=== PATIENT | female | born 1945 | race Caucasian/White ===

== ENCOUNTER → 2017-09-27 | Outpatient (CLI) | payer OTHER, MEDICARE ==
[~2017-09-27] MED LIST: CALCTAB65 PO; NAPR220T PO; [UNRECOGNIZED DRUG - OTHER] PO
== END | disposition home or self-care (01) ==
LOC: C.LABMFLN 10:24
PROVIDERS: ATTEND Family Medicine
DX: E04.9 Nontoxic goiter, unspecified (principal)

== ENCOUNTER 2020-01-22 10:11 | Observation (INO) ==
--- NOTE | 2019-12-27 14:12 | PAT Medication Instructions ---
Medication Instructions Date of Service December 27, 2019 Home Medications Medication Instructions Recorded Wheeled Walker #1 ea 12/11/19 Wheeled Walker #1 ea 12/11/19 celecoxib 200 mg PO QAM ASK your surgeon for instructions celecoxib 200 mg PO QAM Other Notes If you have any questions please call us at [phone] or [phone] or [phone] or [phone]
--- NOTE | 2019-12-29 14:52 | PAT Medication Instructions ---
Medication Instructions Date of Service December 29, 2019 Home Medications Medication Instructions Recorded Wheeled Walker #1 ea 12/11/19 Wheeled Walker #1 ea 12/11/19 celecoxib 200 mg PO QAM ASK your surgeon for instructions celecoxib 200 mg PO QAM Other Notes NOTHING TO EAT OR DRINK AFTER MIDNIGHT THE NIGHT BEFORE SURGERY. If you have any questions please call us at [phone] or [phone] or [phone] or [phone]
--- NOTE | 2019-12-30 13:03 | Anesthesiology Consultation ---
Date of Service December 30, 2019 Assessment & Plan (1) Encounter for pre-operative examination: Chart Review Chart Review: Acceptable Risk for Surgery (pending preop Covid testing) and Patient seen in Pre Admission Testing Pt does wear a pessary- gets removed and cleaned q three months by DEMOLITION EXPERT. Instructed patient to inform surgery to ensure no issues. Per [facility] appt 12/30/19, pt resides in [facility]. Denies travel. Wears mask in public and social distances. Educated patient to follow up with surgeon's office regarding Covid testing. Educated on importance of self quarantining, social distancing and wearing mask in public both for herself and household contacts. Teaching & Discussion Pre-Anesthesia Teaching/Discussion Notes: Instructed NPO after midnight before surgery,except medications with 15 cc of water. Medication instructions provided according to the PAT guidelines. History Surgery Operation Date: 01/22/20 08:50 Proposed Procedures p Left Total Knee Arthroplasty - Arnav Toro MD Height/Weight Height: 5 ft 3 in Weight: 81.7 kg Allergies Allergy/AdvReac Type Severity Reaction Status Date / Time cortisone AdvReac Anxiety Verified 12/24/19 13:51 ezetimibe [From Zetia] AdvReac Anxiety Verified 12/24/19 13:51 Medications Home Medications Medication Instructions Recorded Confirmed Last Taken Wheeled Walker #1 ea 12/11/19 12/24/19 Unknown Wheeled Walker #1 ea 12/11/19 12/24/19 Unknown celecoxib 200 mg PO QAM 12/24/19 12/24/19 Unknown Past Medical History Medical History Arthritis of left knee Cystocele with incomplete uterovaginal prolapse Pt has pessary in place GERD (gastroesophageal reflux disease) Well controlled and stable with med Osteoarthritis Personal history of malignant neoplasm of breast left breast> initially dx'ed 2001- s/p lumpectomy and XRT 2009 - s/p bilateral mastectomy and chemo No ports Sciatica Stress incontinence Exercise / Class Metabolic Activity II 4-5 Yardwork/Stairs/Walk up hill (one flight of stairs- no chest pain or SOB ) Past Family History Family History Daughter Cystic fibrosis Mother Diabetes Heart disease Brother Lung cancer Skin cancer Colorectal cancer Father Prostate cancer Sister Uterine cancer Other Cancer Past Surgical History Surgical History H/O varicose vein ligation History of colonoscopy History of tooth extraction History of tubal ligation S/P bunionectomy right foot S/P cataract surgery bilat S/P lumpectomy of breast left S/P mastectomy bilat Past Anesthesia History No Hx of Anesthesia Complications and No Family Hx of Anesthesia Complications History of PONV No Hx of PONV and No Hx of Motion Sickness Social History Smoking Status: Never smoker Do You Dip or Chew Tobacco: No Hx Alcohol Use: No Hx Substance Use: No substance use type: does not use Review of Systems Patient denies chest pain, shortness of breath, dyspnea on exertion, cough, wheezing, palpitations. No hx of seizures, stroke, CT, apnea/snoring. No hx of blood clots or blood transfusions Physical Exam Vital Signs VITALS BP 153/94 (BP usually well controlled) P 81 TEMP 97.9 SP02 95% RESP 16 Constitutional no acute distress ENMT Mouth: no TMJ clicking Thyromental Distance: < 3.5 Finger Breadths (3.0) Mallampati Class: II Full upper dentures Missing bottom molars Neck + thick neck and + limited neck extension (mild ) Respiratory normal respiratory effort; no respiratory distress Auscultation: lungs clear to auscultation bilaterally; no wheezes Cardiovascular Rate/Rhythm: regular rate and regular rhythm Heart Sounds: no murmur Vessels: no carotid bruit Musculoskeletal Spine: no pain with cervical ROM Neurologic moves all extremities Psychiatric Orientation: alert Testing Laboratory Results 12/30/19 13:22 12/30/19 13:22 PT 10.6 Seconds (9.0-12.0) 12/30/19 13:22 INR 1.0 (0.9-1.1) 12/30/19 13:22 APTT 26.5 Seconds (21.0-31.0) 12/30/19 13:22 Blood Type O Positive 12/30/19 13:22 Antibody Screen NEGATIVE 12/30/19 13:22 Electrocardiogram Date: 12/30/19 Findings: + NSR @ (72) Chest X-Ray Date: 12/30/19 Findings: + NAD
--- NOTE | 2019-12-30 13:49 | XRay Report ---
TWO VIEW CHEST CLINICAL HISTORY: Preoperative examination. FINDINGS: PA and lateral chest radiographs are obtained. No prior studies are available for compariso n at the time of dictation. The cardiomediastinal silhouette is unremarkable. The lungs and pleural spaces are clear. There is no pneumothorax. The skeletal structures are osteopenic. The bony thorax appears intact. Mild degenerative change is noted in the thoracic spine. IMPRESSION: No active disease in the chest. ACT 112: Negative or not required by law. Electronically signed by: Patricio Amato M.D. 12/30/2019 1:48 PM
--- NOTE | 2019-12-30 14:53 | Electrocardiogram Report ---
Test Reason : Blood Pressure : / mmHG Vent. Rate : 072 BPM Atrial Rate : 072 BPM P-R Int : 164 ms QRS Dur : 082 ms QT Int : 402 ms P-R-T Axes : 070 012 073 degrees QTc Int : 440 ms Normal sinus rhythm Normal ECG No previous ECGs available Confirmed by Julio Wooten ([id number]) on 12/30/2019 2:53:41 PM Referred By: Arnav Toro Confirmed By:Julio Wooten
[2019-12-30 16:36] LABS: Basophils # (auto) 0.03 K/uL (0-0.2); Basophils % (auto) 0.7 %; Eosinophils # (auto) 0.24 K/uL (0-0.5); Eosinophils % (auto) 5.2 %; Hematocrit (blood only) 41.9 % (37-47); Lymphocytes # (auto) 1.17 K/uL (1.2-3.4); Lymphocytes % (auto) 25.5 %; Mean Corpuscular Hemoglobin 30.3 pg (25-34); Mean Corpuscular Hgb Conc 33.4 g/dL (32-36); Mean Corpuscular Volume 90.7 fL (80-100); Mean Platelet Volume 12.3 fL (7.4-10.4); Monocytes # (auto) 0.39 K/uL (0.11-0.59); Monocytes % (auto) 8.5 %; Neutrophils # (auto) 2.76 K/uL (1.4-6.5); Neutrophils % (auto) 60.1 %; Platelet Count 137 K/uL (130-400); RDW Coefficient of Variation 13.3 % (11.5-14.5); RDW Standard Deviation 43.7 fL (36.4-46.3); Red Blood Count 4.62 M/uL (4.2-5.4); White Blood Count 4.59 K/uL (4.8-10.8)
[2019-12-30 16:47] LABS: Calcium 9.3 mg/dl (8.5-10.1); Creatinine Clr Calc Pharmacy 58.1 ml/min; Est GFR (African American) 77.1; Est GFR (Non-African American) 66.6; Potassium 3.7 mmol/L (3.5-5.1)
[2019-12-30 16:48] LABS: Partial Thromboplastin Ratio 0.9; Partial Thromboplastin Time 26.5 Seconds (21.0-31.0); Prothrombin Time 10.6 Seconds (9.0-12.0)
[~2020-01-22 10:11] MED LIST changes: +ACETAMINOPHEN 500 MG TAB PO SCH; +BUPIVACAINE 0.5 % 5 MG/1 ML PF 10ML VIAL ONE; +BUPIVACAINE LIPOSOME/PF 266 MG, BUPIVACAINE/EPINEPHRINE 50 ML, SODIUM CHLORIDE 0.9% 30 ... INFIL SCH; -CALCTAB65 PO; +CEFAZOLIN 2000MG 2,000 MG/15 ML SYR IV SCH; +FAMOTIDINE 20 MG TAB PO SCH; +GABAPENTIN 300 MG CAP PO SCH; +LR 500ML BOLUS, THEN 15ML/HR IV SCH; +LR 60ML/HR IV SCH; +METOCLOPRAMIDE HCL 10 MG TABLET PO SCH; -NAPR220T PO; +ROPIVACAINE 0.5% 5 MG/ML 30 ML VIAL ONE; +TRANEXAMIC ACID 1,000 MG **IV Intra-op IV SCH; -[UNRECOGNIZED DRUG - OTHER] PO
--- NOTE | 2020-01-22 10:29 | History & Physical Bridge Note ---
Date of Service January 22, 2020 History & Physical Bridge Note I have examined the patient, reviewed the History & Physical and in the interval since the performance of the History & Physical I have noted the following changes of clinical significance: no changes noted
[2020-01-22] MEDS ORDERED: ONDANSETRON INJ 2 MG/ML 2 ML VIAL IV PRN (11:06)
[2020-01-22] MEDS ORDERED: fentaNYL citrate 100 MCG/2 ML VIAL IV PRN (11:06)
[2020-01-22] MEDS ORDERED: ATROPINE SULFATE 0.1 MG/ML 10ML SYR IV PRN (11:06)
[2020-01-22] MEDS ORDERED: ePHEDrine sulfate 50 MG/ML AMP IV PRN (11:06)
[2020-01-22] MEDS ORDERED: MIDAZOLAM HCL 1 MG/ML 2ML VIAL ONE ×2 (11:46→13:01)
[2020-01-22] MEDS ORDERED: LIDOCAINE HCL 2% 2 ML VIAL/AMP(20MG/ML) INFIL ONE (11:48)
[2020-01-22] MEDS ORDERED: PROPOFOL IV EMULSION 10 MG/ML 20 ML VIAL IV ONE ×2 (11:48→13:48)
[2020-01-22] MEDS ORDERED: SODIUM CHLORIDE 0.9% PF 50 ML VIAL ONE (12:37)
[2020-01-22] MEDS ORDERED: BACITRACIN INJ 50,000 UNIT VIAL ONE (12:37)
[2020-01-22] MEDS ORDERED: BUPIVACAINE LIPOSOME 1.3% 266 MG/20 ML VIAL ONE (12:37)
[2020-01-22] MEDS ORDERED: BUPIVACAINE/EPINEPHRINE 0.25% 1:200,000 30 ML VIAL ONE (12:37)
[2020-01-22] MEDS ORDERED: PHENYLEPHRINE 100MCG/ML 5ML SYR ONE (13:48)
--- NOTE | 2020-01-22 14:33 | Post Operative Brief Note ---
PG Immediate Post Op with CF Date of Surgery January 22, 2020 Pre & Post Diagnosis Operation Date: 01/22/20 12:30 Pre-Op Diagnosis: Left Knee Degenerative Joint Disease, Knee Pain Post-Op Diagnosis: Left Knee Degenerative Joint Disease, Knee Pain I identified the patient and participated in the time-out.: Yes Procedure Operation Date: 01/22/20 12:30 Actual Procedures p Left Total Knee Replacement(Left) - Arnav Toro MD Surgeon Arnav Toro MD [employer] Supervisor Ag, PAC\ Estimated Blood Loss 50 Findings Consistent with Post-Op Diagnosis Fluids 1200 cc Specimens Specimen Description: Permanent: A. Left Knee Bone and Tissue Drains Hwang Catheter Anesthesia Type Spinal MAC Complications none Disposition Accompanied Patient To Recovery: No Disposition: Recovery Room
--- NOTE | 2020-01-22 14:44 | Operative Report ---
Post Operative Report Pre & Post Diagnosis Operation Date: 01/22/20 12:30 Pre-Op Diagnosis: Left Knee Degenerative Joint Disease, Knee Pain Post-Op Diagnosis: Left Knee Degenerative Joint Disease, Knee Pain I identified the patient and participated in the time-out.: Yes Procedure Operation Date: 01/22/20 12:30 Actual Procedures p Left Total Knee Replacement(Left) - Arnav Toro MD Surgeon Arnav Toro MD Interactive Media Designer Ag, PAC Estimated Blood Loss 50 Findings Consistent with Post-Op Diagnosis Operative findings revealed advanced left knee DJD. She had extensive grade 4 [id number] disease and eburnation of the medial compartment. She had less severe but significant grade 4 changes in her patellofemoral compartment as well as the lateral compartment. Moderate-sized joint effusion. She had a varus deformity to her knee with osteophytes in all 3 compartments. Fluids 1200 cc. Specimens Left knee sent for pathology. Drains None. Anesthesia Type Spinal MAC Complications none Disposition Accompanied Patient To Recovery: No Disposition: Recovery Room Indications Patient is a 74-year-old very active female is had a long history of bilateral knee pain discomfort left side bit worse than right. She is been through extensive conservative treatment over the years which became less successful. X-rays show advanced DJD. She elected to total knee arthroplasty. Description of Procedure Operative implants consist of: 1. Biomet Vanguard size 65 left posterior by femoral component. 2. Biomet size 67 tibial tray. 3. 12 mm posterior stabilized polyethylene insert. 4. 28 x 8 all poly-patella. Patient was taken to the operating room identified and placed on the operating table supine position protectors were properly padded. IV antibiotics arrived by anesthesia team. A spinal anesthetic and abductor canal block had provided in the holding area. Hwang catheter was placed in sterile fashion the left thigh tip was then placed in the left lower extremities and prepped draped in usual sterile fashion. The left leg was elevated and exsanguinated with use of an Esmarch interspace at 300 mmHg. An anterior posterior left knee was then performed to longitudinal incision centered over the patella. Sharp dissection got through subcutaneous this down the extensor mechanism. A medial parapatellar arthrotomy incision was made. Some subperiosteal dissection was carried out medially. The fat pad was resected from each patella tendon. Lateral patellofemoral ligament was released. The patella was subluxated laterally and the knee was flexed. The osteophytes were taken off distal femur. The ACL and PCL were then released from distal femur the tibia subluxate anteriorly. The external tibial alignment jig was then placed in the interface the tibia and adjusted 14 mm medially. Proximal tibial cut was made to move out a millimeter or 2 of bone from the most deficient aspect medial tibial plateau. Some large osteophytes were taken off medial and posterior medially. Tibia was sized to a size 67. Attention drawn the femur. The distal femur then with a sharp drop with intramedullary canal was suction. A left 5 degree valgus cutting guide was placed. Distal femoral cutting block was pinned in place. This femoral cut was made to take an additional 3 mm of bone off distal femur. The femur was then sized to a size 65. We did downsize a 7. The AP cutting block was then pinned parallel to the epicondylar axis which was 6 degrees of external rotation. The anterior cut, anterior chamfer, posterior cut, posterior chamfer cuts were made. Box cutting guide was placed in just slight lateral and the box cut was made. The knee was flexed. The remnants of the medial and lateral menisci were excised. The osteophytes were taken off the posterior aspect of the femur. A trial femoral component was placed for the tibial tray was pinned in maximum external rotation and the drill and stem punch were used to create defect in proximal tip for the tibial tray. Knee was then trialed and the 12 mm insert fit most appropriately. Attention drawn the patella. Patella was cleaned of all soft tissues. The patella thickness measured 23 mm in thickness was cut down to 14. Was sized to a size 28 patella. Locals were drilled for the 28 patella. Lateral osteophyte was removed. Patella button was placed. Knee was taken through range of motion patella tracked nicely with no thumbs test. Attention drawn to place the permanent components. All trial components removed. Bone plug was placed in the disc femur limit blood loss put a double batch Pal[place]os G cement was mixed. A Biomet Vanguard size 65 left posterior by femoral component, 67 tibial tray, 12 mm posterior box polyethylene insert, and a 28 x 8 all poly-patella then cement in place. Knees brought out in full extension total cement hardened. Final cement check was then performed. The pericapsular tissues were injected with total 100 cc of combination of 20 cc of Exparel, 30 cc normal saline, 50 cc of quarter percent Marcaine with epinephrine. Patient did receive 1 g tranexamic acid. The tourniquet was then let down for turn time 55 minutes but hemostasis assured use electrocautery. The extensor mechanism then closed with combination 1 PDS suture #1 Vicryl suture in [id number] fashion. The extensor mechanism checked found to be intact the subcutaneous tissue then closed 2 Dexon suture in a buried interrupted fashion the skin was closed skin cricket. Leg was then cleaned dried and sterile dressed composed Xeroform, 4 x 4's, sterile cast padding, Antwon bandage were applied. Patient then transferred to the recovery room in stable condition. Patient tolerated the procedure well and there were no complications. I attest to the content of the Intraoperative Record and any orders documented therein. Any exceptions are noted below.
--- NOTE | 2020-01-22 14:56 | XRay Report ---
XR knee LT 1 or 2V routine CLINICAL HISTORY: Surgical Post Op COMPARISON: 03/15/2019 DISCUSSION: There are postsurgical changes of a total left knee arthroplasty and patellar resurfacing . The femoral and tibial components appear well seated. There are overlying skin cricket. There is ai r within the soft tissues consistent with recent surgery IMPRESSION: Postsurgical changes of a total left knee arthroplasty. ACT 112: Negative or not required by law. Electronically signed by: Luther Cortes M.D. 01/22/2020 2:55 PM
--- NOTE | 2020-01-22 15:37 | Anesthesiology Progress Note ---
Date of Service January 22, 2020 Anesthesia Post Procedure Vital Signs Vital Signs: Temp Pulse Pulse Resp BP Pulse Ox 01/22/20 15:30 84 14 133/75 94 01/22/20 15:20 87 15 139/77 98 01/22/20 15:10 87 16 131/80 96 01/22/20 15:00 88 18 123/72 98 01/22/20 14:50 89 16 125/67 99 01/22/20 14:40 94 H 16 118/65 97 01/22/20 14:33 36.7 C 98 H 18 102/63 98 01/22/20 11:20 80 18 157/103 H 96 01/22/20 10:41 36.6 C 83 18 125/87 97 Transfer of Care Handoff Completed per policy Notes Mental Status: alert / awake / arousable and participated in evaluation Patient Amnestic to Procedure: Yes Nausea / Vomiting: adequately controlled Pain: adequately controlled Airway Patency, RR, SpO2: stable & adequate BP & HR: stable & adequate Hydration State: stable & adequate Neuraxial Anesthesia: was administered and sensory block is resolving Anesthetic Complications: no major complications apparent and Pt Satisfied with anesthetic care
[2020-01-22] MEDS ORDERED: ALUMINUM/MAGNESIUM SUSP 30 ML UDC PO PRN (16:26)
[2020-01-22] MEDS ORDERED: NALOXONE HCL 0.4 MG/1 ML VIAL/CARP IV PRN (16:26)
[2020-01-22] MEDS ORDERED: MAGNESIUM HYDROXIDE SUSP 30 ML UDC PO PRN (16:26)
[2020-01-22] MEDS ORDERED: HYDROmorphone INJ 0.5 MG/0.5 ML SYR IV PRN (16:26)
[2020-01-22] MEDS ORDERED: METOCLOPRAMIDE HCL INJ 5 MG/ML 2 ML VIAL IV PRN (16:26)
[2020-01-22] MEDS ORDERED: bisacodyL 10 MG SUPP PR PRN (16:26)
[2020-01-22] MEDS: SODIUM CHLORIDE 0.9% 1000ML 1,000 ML IV SCH (16:52)
[2020-01-22] MEDS: ASCORBIC ACID 500 MG TAB PO SCH (17:50)
[2020-01-22] MEDS: FERROUS GLUCONATE 324 MG TAB PO SCH (17:50)
[2020-01-22] MEDS: KETOROLAC TROMETHAMINE 15 MG/ML VIAL IV SCH ×2 (17:51→23:24)
[2020-01-22] MEDS: ASPIRIN 81 MG ECTAB PO SCH (20:13)
[2020-01-22] MEDS: TRAMADOL HCL 50 MG TABLET PO PRN (20:13)
[2020-01-22] MEDS: SENNA 8.6 MG TAB PO SCH (20:14)
[2020-01-22] MEDS: DOCUSATE SODIUM 100 MG CAP PO SCH (20:14)
[2020-01-22] MEDS ORDERED: TRANEXAMIC ACID / 0.7% NACL 1,000 MG/100 ML BAG IV SCH (20:36)
[2020-01-22] MEDS: ACETAMINOPHEN 500 MG TAB PO SCH (22:16)
[2020-01-22] MEDS: CEFAZOLIN 2000MG 2,000 MG/15 ML SYR IV SCH (22:17)
[2020-01-23] MEDS: SODIUM CHLORIDE 0.9% 1000ML 1,000 ML IV SCH (02:54)
[2020-01-23] MEDS: ACETAMINOPHEN 500 MG TAB PO SCH ×3 (05:56→22:17)
[2020-01-23] MEDS: CEFAZOLIN 2000MG 2,000 MG/15 ML SYR IV SCH (05:57)
[2020-01-23] MEDS: ONDANSETRON INJ 2 MG/ML 2 ML VIAL IV PRN ×2 (06:11→19:18)
[2020-01-23] MEDS: KETOROLAC TROMETHAMINE 15 MG/ML VIAL IV SCH ×3 (06:20→17:20)
[2020-01-23 06:23] LABS: Hematocrit (blood only) 34.9 % (37-47); Hemoglobin 11.6 g/dL (12.0-16.0); Mean Corpuscular Hemoglobin 29.9 pg (25-34); Mean Corpuscular Hgb Conc 33.2 g/dL (32-36); Mean Corpuscular Volume 89.9 fL (80-100); Mean Platelet Volume 12.2 fL (7.4-10.4); Platelet Count 102 K/uL (130-400); RDW Coefficient of Variation 13.2 % (11.5-14.5); RDW Standard Deviation 43.3 fL (36.4-46.3); Red Blood Count 3.88 M/uL (4.2-5.4); White Blood Count 7.35 K/uL (4.8-10.8)
[2020-01-23 06:24] LABS: Platelet Estimate Decreased (Normal)
[2020-01-23 06:27] LABS: BUN Creatinine Ratio 18.5 (10-20); Calcium 7.6 mg/dl (8.5-10.1); Creatinine Clr Calc Pharmacy 58.4 ml/min; Est GFR (African American) 78.2; Est GFR (Non-African American) 67.5
[2020-01-23] MEDS: FERROUS GLUCONATE 324 MG TAB PO SCH ×2 (08:53→17:20)
[2020-01-23] MEDS: DOCUSATE SODIUM 100 MG CAP PO SCH ×2 (08:53→20:35)
[2020-01-23] MEDS: ASPIRIN 81 MG ECTAB PO SCH ×2 (08:54→20:36)
[2020-01-23] MEDS: MULTIVITAMIN TAB PO SCH (08:54)
[2020-01-23] MEDS: ASCORBIC ACID 500 MG TAB PO SCH ×2 (08:54→17:21)
--- NOTE | 2020-01-23 08:59 | Progress Notes ---
DATE: 01/23/2020 SUBJECTIVE: A 74-year-old female postop day 1 from left knee replacement. She is doing pretty well. Had a pretty good night. Pain is controlled. No chest pain or shortness of breath. Not feeling dizzy or lightheaded. OBJECTIVE: VITAL SIGNS: Temperature 36.6. Vital signs stable. GENERAL: Physical examination shows a pleasant elderly female. She is sitting up in bed, looks quite comfortable. LUNGS: Clear to auscultation. HEART: Regular rate and rhythm. ABDOMEN: Soft, nontender, nondistended. EXTREMITIES: Grossly neurovascularly intact except as follows. Examination of the left leg reveals it to be well aligned. Dressing is clean, dry and intact. She can dorsiflex and plantarflex her foot appropriately. She is neurologically intact. LABORATORY DATA: Hemoglobin 11.6. Hematocrit 34.9. Electrolytes are stable. ASSESSMENT: A 74-year-old female postop day 1 from left knee replacement, doing well. Pain is controlled. She is neurologically intact. PLAN: 1. DVT prophylaxis include thigh-high TEDs, SCDs and aspirin twice a day. 2. PT/OT, weightbear as tolerated. Left total knee protocol. 3. Pain control, doing well with current pain regimen. 4. Disposition. She is hoping to be discharged to home with some home health once adequately recovered and medically stable. We will see how therapy goes today.
[2020-01-23] MEDS: TRAMADOL HCL 50 MG TABLET PO PRN (11:53)
[2020-01-23] MEDS: SENNA 8.6 MG TAB PO SCH (20:37)
[2020-01-24] MEDS: KETOROLAC TROMETHAMINE 15 MG/ML VIAL IV SCH ×2 (00:07→06:11)
[2020-01-24] MEDS: ACETAMINOPHEN 500 MG TAB PO SCH (06:11)
[2020-01-24] MEDS: ASPIRIN 81 MG ECTAB PO SCH (08:19)
[2020-01-24] MEDS: MULTIVITAMIN TAB PO SCH (08:19)
[2020-01-24] MEDS: DOCUSATE SODIUM 100 MG CAP PO SCH (08:19)
[2020-01-24] MEDS: FERROUS GLUCONATE 324 MG TAB PO SCH (08:20)
[2020-01-24] MEDS: ASCORBIC ACID 500 MG TAB PO SCH (08:20)
--- NOTE | 2020-01-24 09:17 | Progress Notes ---
DATE: 01/24/2020 SUBJECTIVE: A 74-year-old white female postop day 2 from a left knee replacement. She is doing pretty well. Pain is controlled. Some intermittent nausea. No chest pain or shortness of breath. Not feeling dizzy or lightheaded. OBJECTIVE: VITAL SIGNS: Temperature 36.7. Vital signs stable. GENERAL: Physical examination shows a pleasant, elderly female. She is sitting up in bed, looks pretty comfortable this morning. EXTREMITIES: Examination of the left leg reveals the leg to be well aligned. Dressings is in place. Just a little bit of bloody drainage anteriorly. Calf is soft and supple. She is neurologically intact. ASSESSMENT: A 74-year-old white female postop day 2 from a left knee replacement, doing pretty well. A little bit of nausea likely related to the medicines. PLAN: 1. DVT prophylaxis include thigh-high TEDs, SCDs, and aspirin twice a day. 2. PT/OT, weightbear as tolerated. Left total knee protocol. 3. Pain control, doing well with current pain regimen. 4. Disposition: Plan to discharge to home with some home health likely later today.
--- NOTE | 2020-01-27 16:11 | Discharge Summary ---
Date of Service January 27, 2020 Admission HPI Per Admitting Provider Documented in the H & P Admission Exam (Per Admitting) Constitutional Documented in the H & P Discharge Data Consultations 01/22/20 16:26 Consult Case Management - Discharge Planning Routine Procedures Performed Operation Date: 01/22/20 12:30 Actual Procedures p Left Total Knee Replacement(Left) - Arnav Toro MD Hospital Course (1) Status post total left knee replacement: This patient is a 74 year old female admitted on 01/22/20and underwent left total knee replacement. She tolerated the procedure well and there were no complications. Transferred to the PACU post op and later to the orthopedic floor for further care. She was given ancef for antibiotic prophylaxis. She was also given ISIDRA stockings, SCDs, and aspirin for DVT prophylaxis. Hemoglobin, hematocrit, and vital signs were monitored during their hospital stay and remained stable. Did not require any blood transfusions. There were no complications during their hospital stay. By post op day #2 the patient was tolerating a regular diet, pain was reasonably controlled with oral pain medicine, and she was participating in physical therapy. On post op day #2 the patient was discharged home and set up with home health care. She was given printed discharge instructions including prescriptions for extra strength tylenol, aspirin, and tramadol. Continue physical therapy, weight bearing as tolerated. Continue ISIDRA stockings. Follow up approximately 2 weeks post op or sooner if there are problems or concerns. Coding Level of Care Code None Diagnoses Status post total left knee replacement Z96.652
== END 2020-01-24 11:00 | disposition home health service (06) ==
LOC: 3E 10:11 → ASU 10:11

== ENCOUNTER 2023-11-22 10:46 | Observation (INO) ==
--- NOTE | 2023-10-28 10:49 | PAT Medication Instructions ---
Medication Instructions Date of Service October 28, 2023 Home Medications naproxen sodium 220 mg tablet (Aleve) 420 mg PO BID PRN Pain ASK your surgeon for instructions naproxen sodium 220 mg tablet (Aleve) 420 mg PO BID PRN Pain OTHERWISE NOTHING TO EAT OR DRINK AFTER MIDNIGHT Other Notes If you have any questions please call us at [phone] or [phone] or [phone] or [phone]
--- NOTE | 2023-11-07 10:11 | Anesthesiology Consultation ---
Date of Service November 07, 2023 Assessment & Plan (1) Encounter for pre-operative examination: - Infectious disease screening: Per assessment on 11/07/23: No known infectious disease contacts or current infectious disease symptoms. - Outpatient joint assessment: Pt currently scheduled for inpatient pathway. If surgeon requests review for outpatient joint pathway, patient is an acceptable candidate for outpatient joint program from anesthesia standpoint pending surgeon's office assessment that patient is motivated, has good support and completes [facility] Program preop requirements. - LUE limb restriction - S/P Left TKA (01/22/2020): SAB at L4-5, x1 attempt + regional at [facility] Chart Review Chart Review: Acceptable Risk for Surgery and Patient seen in Pre Admission Testing Teaching & Discussion Pre-Anesthesia Teaching/Discussion Notes: Instructed NPO after midnight before surgery,except medications with 15 cc of water. Medication instructions provided according to the PAT guidelines. p History Surgery Operation Date: 11/22/23 08:50 Proposed Procedures p Right Total Knee Arthroplasty - Arnav Toro MD Height/Weight Height: 5 ft 3 in Weight: 81.1 kg Allergies Allergy/AdvReac Type Severity Reaction Status Date / Time cortisone AdvReac Mild Anxiety Verified 10/24/23 07:26 ezetimibe [From Zetia] AdvReac Mild Anxiety Verified 10/24/23 07:26 Medications Home Medications Medication Instructions Recorded Confirmed Last Taken naproxen sodium 220 mg tablet 420 mg PO BID PRN Pain 10/24/23 10/24/23 Unknown (Aleve) Past Medical History Medical History Cystocele with incomplete uterovaginal prolapse + Pessary History of COVID-19 08/12/23 ([place]): not hospitalized, symptoms resolved Hx of gastroesophageal reflux (GERD) Hyperlipidemia Limb alert care status Left arm Osteoarthritis Personal history of malignant neoplasm of breast Left breast, Dx 2001, s/p lumpectomy and XRT 2009 - s/p bilateral mastectomy and chemo PMR (polymyalgia rheumatica) Right knee DJD Right lumbar radiculopathy Sciatica Stress incontinence Trochanteric bursitis of right hip Exercise / Class Metabolic Activity II 4-5 Yardwork/Stairs/Walk up hill (one FS: No CP, no SOB) Past Family History Family History Daughter Cystic fibrosis Breast cancer Mother Diabetes Heart disease Myocardial infarction Ovarian cancer Brother Lung cancer Skin cancer Colorectal cancer Myocardial infarction Father Prostate cancer Sister Uterine cancer Myocardial infarction Other Cancer Past Surgical History Surgical History H/O varicose vein ligation History of arthroplasty of left knee Left TKA (01/22/2020): SAB at L4-5, x1 attempt + regional at [facility] History of colonoscopy History of tooth extraction History of tubal ligation Hx of bilateral cataract extraction Hx of bilateral mastectomy S/P bunionectomy right foot S/P lumpectomy of breast left Past Anesthesia History No Hx of Anesthesia Complications and No Family Hx of Anesthesia Complications History of PONV No Hx of PONV and Hx of Motion Sickness (Occasional) Social History Smoking Status: Never smoker Do You Dip or Chew Tobacco: No Hx Alcohol Use: No Hx Substance Use: No substance use type: does not use Review of Systems Patient denies chest pain, shortness of breath, dyspnea on exertion, fever, chills, cough, wheezing, palpitations. Physical Exam Vital Signs BP 153/86 P 85 TEMP 98.1 SP02 95%RA RESP 18 Physical Full cervical extension range of motion. Full TMJ range of motion. TMD 3 finger breaths Mallampati Score 1 Dentition: upper full plate, several missing lower teeth Lungs: clear throughout to auscultation Cardiac: regular rate and rhythm, no murmurs noted Spine: normal Carotid arteries: negative bruit Extremities: no LE edema Lab Results Anesthesia Preop Results Results Anesthesia Widget: WBC 4.75 K/ul (4.8-10.8) L 11/07/23 Hgb 14.4 g/dl (12.0-16.0) 11/07/23 Hct 43.9 % (37.0-47.0) 11/07/23 Plt 135 K/uL (130-400) 11/07/23 Na 138 mmol/L (136-145) 11/07/23 K 4.3 mmol/L (3.5-5.1) 11/07/23 Cl 103 mmol/L (98-107) 11/07/23 CO2 28 mmol/L (21-32) 11/07/23 BUN 16 mg/dl (6-23) 11/07/23 Creat 0.83 mg/dl (0.6-1.2) 11/07/23 Glucose Level 108 mg/dl (70-99(Fasting)) H 11/07/23 PT 10.8 Seconds (9.0-12.0) 11/07/23 PTT 26 Seconds (21-31) 11/07/23 INR 1.0 (0.9-1.1) 11/07/23 Blood Type O Positive 11/07/23 Antibody Screen NEGATIVE 11/07/23 Testing Electrocardiogram Date: 11/07/23 NSR at 75bpm. Low voltage QRS. Early transition. Leftward axis. No significant change compared to 12/30/2019 per disc jockey comparison. Chest X-Ray Date: 11/07/23 FINDINGS: PA and lateral chest radiographs are compared to study dated 12/30/2019. The cardiomediastinal silhouette is unremarkable. The lungs and pleural spaces are clear. There is no pneumothorax. The skeletal structures are osteopenic. The bony thorax appears intact. Arthritic change is noted in the left shoulder. IMPRESSION: No active disease in the chest.
--- NOTE | 2023-11-16 09:22 | History & Physical Report ---
Date of Service November 16, 2023 Assessment & Plan (1) Right knee DJD: 78-year-old female little over 3 years out from a left knee replacement with advanced right knee DJD. She is failed conservative measures. She like to proceed with right knee replacement. Plan: Plan to take her to the operating room and do a right total knee replacement. The risks Mente this procedure explained the patient include but not limited to DVT, PE, , infection, neurological injury, vascular injury, persistent pain and incomplete relief of symptoms. The patient understands and desires to proceed. Informed consent was obtained. She is planning on using the [email or web address] health program. Her granddaughter is going to come and stay with her postoperatively for a while. Will plan on DVT prophylaxis including thigh-high teds, SCDs, aspirin twice a day. (2) Status post total left knee replacement: (3) PMR (polymyalgia rheumatica): (4) Hyperlipidemia: History of Present Illness Chief Complaint: Persistent right knee pain and discomfort. Primary Care Provider: Violeta Rees DO . Patient is a 78-year-old female little over 3 years out from a left knee replacement who presents for surgical treatment of her right knee. She got a long history of knee problems. She is a bit over 3 years from the left knee replacement doing well. She continues to be bothered by right knee pain and discomfort. She been through extensive conservative treatment which has become less successful over time. Describes global pain. The more she is up and onto more it hurts and she limps more as the day goes on. She like to proceed with that a right knee replacement. Allergies Allergy/AdvReac Type Severity Reaction Status Date / Time cortisone AdvReac Mild Anxiety Verified 11/15/23 09:21 ezetimibe [From Zetia] AdvReac Mild Anxiety Verified 11/15/23 09:21 Home Medications Medication Instructions Recorded Confirmed Type naproxen sodium 220 mg tablet 420 mg PO BID PRN Pain 10/24/23 11/15/23 History (Aleve) Wheeled Walker #1 ea 11/12/23 11/15/23 Rx Past Med/Surg History Medical History Hx of gastroesophageal reflux (GERD) History of COVID-19 08/12/23 ([place]): not hospitalized, symptoms resolved Limb alert care status Left arm Trochanteric bursitis of right hip Right lumbar radiculopathy Hyperlipidemia PMR (polymyalgia rheumatica) Right knee DJD Osteoarthritis Stress incontinence Cystocele with incomplete uterovaginal prolapse + Pessary Sciatica Personal history of malignant neoplasm of breast Left breast, Dx 2001, s/p lumpectomy and XRT 2009 - s/p bilateral mastectomy and chemo Surgical History Hx of bilateral mastectomy Hx of bilateral cataract extraction History of arthroplasty of left knee Left TKA (01/22/2020): SAB at L4-5, x1 attempt + regional at [facility] History of colonoscopy History of tooth extraction H/O varicose vein ligation History of tubal ligation S/P bunionectomy right foot S/P lumpectomy of breast left Family History Daughter Cystic fibrosis Breast cancer Mother Diabetes Heart disease Myocardial infarction Ovarian cancer Brother Lung cancer Skin cancer Colorectal cancer Myocardial infarction Father Prostate cancer Sister Uterine cancer Myocardial infarction Other Cancer Social History Smoking Status: Never smoker Second Hand Exposure: No; Do You Dip or Chew Tobacco: No; Tobacco Cessation Education Requested by Patient: No Hx Alcohol Use: No Hx Substance Use: No Preferred Language: Bulgarian Communication Ability: Effective Visual Impairment: No Limitations Hearing Ability: Normal Lead Auditor Required: No Beliefs That Will Affect Care: None marital status: / Current Living Situation: Family Current Living Situation Comment: daughter (mentally handicap) current occupational status: retired Other Information That Helps Us Care for You: No Feels Safe at Home: Yes Safety Concerns: Feels Safe At This Time Childhood Exposure to Second-Hand Smoke: No caffeine: Yes (3-4 cups coffee) Dental Care, Regularly: No Physical Activity Frequency: 1-2 Times per Week Seatbelt Use: always Sunscreen Use: No Do you think of yourself as: straight/heterosexual Assistive Devices: Denture - Upper and Glasses Review of Systems All systems reviewed & are unremarkable except as noted in HPI & below. Physical Exam . Physical examination reveals a pleasant elderly female. Looks younger than her stated age. Examination of the right knee reveals patient walks with a slight bit of a limp. She got slight varus alignment to her knee. She is tender over the medial joint line. She is got bony hypertrophy medially. Range of motion is near full extension to 120 degrees of flexion. Negative straight leg raise. Examination left knee reveals well-healed incision. Range of motion 0-1 20. No swelling. No instability. Constitutional WD/WN, vitals as above Neck trachea midline, no thyromegaly Respiratory normal respiratory effort, lungs clear to auscultation Cardiovascular RRR, no murmur, no edema Gastrointestinal (Abdomen) normal bowel sounds, soft, nontender, no hepatosplenomegaly Results & Data Results & Data Laboratory Results . Diagnostic Findings . X-rays of the right knee reviewed. Shows advanced right knee DJD. She has complete loss of medial joint space. She got osteophytes primarily medially. The left knee replacement looks to be good position without problems. PG Care Time/CCT Total # of Minutes Spent Total Time Spent with Patient: Total time spent is greater than 50% in coordination of care (as documented) at patient's floor/unit and/or counseling patient: Coding Level of Care Code None Diagnoses Right knee DJD M17.11 Status post total left knee replacement Z96.652 PMR (polymyalgia rheumatica) M35.3 Hyperlipidemia E78.5
[~2023-11-22 10:46] MED LIST changes: -ACETAMINOPHEN 500 MG TAB PO SCH; -BUPIVACAINE LIPOSOME/PF 266 MG, BUPIVACAINE/EPINEPHRINE 50 ML, SODIUM CHLORIDE 0.9% 30 ... INFIL SCH; -CEFAZOLIN 2000MG 2,000 MG/15 ML SYR IV SCH; -FAMOTIDINE 20 MG TAB PO SCH; -GABAPENTIN 300 MG CAP PO SCH; -LR 500ML BOLUS, THEN 15ML/HR IV SCH; -LR 60ML/HR IV SCH; -METOCLOPRAMIDE HCL 10 MG TABLET PO SCH; -TRANEXAMIC ACID 1,000 MG **IV Intra-op IV SCH
--- NOTE | 2023-11-22 10:55 | History & Physical Bridge Note ---
Date of Service November 22, 2023 History & Physical Bridge Note I have examined the patient, reviewed the History & Physical and in the interval since the performance of the History & Physical I have noted the following changes of clinical significance: no changes noted
[2023-11-22] MEDS: LR 500ML BOLUS, THEN 15ML/HR IV SCH (11:27)
[2023-11-22] MEDS: ACETAMINOPHEN 500 MG TAB PO SCH ×2 (11:29→20:29)
[2023-11-22] MEDS: FAMOTIDINE 20 MG TAB PO SCH (11:29)
[2023-11-22] MEDS: METOCLOPRAMIDE HCL 10 MG TABLET PO SCH (11:29)
[2023-11-22] MEDS: LR 60ML/HR IV SCH (11:30)
[2023-11-22] MEDS: CeleBREX 200 MG CAP PO SCH (11:30)
[2023-11-22] MEDS: dexAMETHasone**PF** 10 MG/ML VIAL IV SCH (11:35)
[2023-11-22] MEDS ORDERED: MIDAZOLAM HCL 1 MG/ML 2ML VIAL ONE (11:50)
[2023-11-22] MEDS ORDERED: fentaNYL citrate PF 100 MCG/2 ML VIAL ONE (11:50)
[2023-11-22] MEDS ORDERED: PROPOFOL IV EMULSION 10 MG/ML 20 ML VIAL IV ONE (11:50)
[2023-11-22] MEDS: ceFAZolin 2000MG 2,000 MG/15 ML SYR IV SCH ×2 (12:53→20:29)
[2023-11-22] MEDS: ROPIV 0.5% 246mg, Ketorolac 30mg, EPINEPHrine 0.5mg in NSS INFIL SCH (13:20)
[2023-11-22] MEDS: TRANEXAMIC ACID 1,000 MG **IV Intra-op IV SCH (13:47)
[2023-11-22] MEDS ORDERED: ONDANSETRON INJ 2 MG/ML 2 ML VIAL ONE (14:24)
[2023-11-22] MEDS ORDERED: PHENYLEPHRINE 100MCG/ML 10ML SYR IV ONE (14:25)
--- NOTE | 2023-11-22 14:43 | Operative Report ---
PG Post Operative Report Pre & Post Diagnosis Operation Date: 11/22/23 12:30 Pre-Op Diagnosis: Right Knee Degenerative Joint Disease Post-Op Diagnosis: Right Knee Degenerative Joint Disease I identified the patient and participated in the time-out.: Yes Procedure Operation Date: 11/22/23 12:30 Actual Procedures p Right Total Knee Arthroplasty(Right) - Arnav Toro MD Surgeon Arnav Toro MD Surgical Supply Assistant Jose Luong PA-C Estimated Blood Loss 50 Findings Consistent with Post-Op Diagnosis Operative findings were advanced right knee DJD. She had extensive grade 4 [id number] disease of the medial compartment of her knee with eburnation of the bone. She had a varus deformity to her knee. That she had some spotty grade 4 changes in the patellofemoral joint. Moderate-sized joint effusion. Specimens Right knee sent for pathology. Anesthesia Type Spinal MAC Complications none Disposition Accompanied Patient To Recovery: No Indications Patient is a 78-year-old female is had a long history of knee problems over the years. She had her left knee replaced about 4 years ago was done pretty well from that. She continues to be limited by right knee pain that got worse over the past several years. She failed conservative measures. She elected proceed with total knee arthroplasty. Description of Procedure Operative implants consist of: 1 Biomet Vanguard size 67.5 right posterior stabilized femoral component. 2. Biomet size 67 tibial tray. 3. 10 mm posterior stabilized polyethylene insert. 4. 28 x 8 all poly patella. The patient was taken the op room, identified, placed on the operating table in the supine position. All contact areas were appropriately padded. IV antibiotics tried by anesthesia team. A spinal anesthetic and adductor canal block had provided in the holding area. Hwang catheter was placed in sterile fashion. Right thigh tent was then placed to the right lower extremities and prepped and draped in usual sterile fashion. The right leg was elevated exsanguinated with use of an Esmarch and tourniquet placed at 300 mmHg. An anterior approach to the right knee was then performed to longitudinal incision centered over the patella. Sharp dissection was carried through subcutaneous tissue down the extensor mechanism. A medial parapatellar arthrotomy incision was made. Some subperiosteal dissection was carried out medially. The fat pad was resected from Neath patella tendon. The lateral patellofemoral ligament was released. Patella subluxated laterally and the knee was flexed. The osteophytes were taken on distal femur. The ACL and PCL were then released from the distal femur and the tibia subluxated anteriorly. The external treatment line jig was then placed on the anterior face of the tibia and adjusted 12 mm medially. Proximal tibial cut was made to remove about a millimeter bone from most deficient aspect of the medial side of her knee. The tibia was then sized to a size 67. Attention drawn the femur. The distal femur was then with a sharp drill. Intramedullary canal was suction. Right 5 degree valgus cutting guide was placed. Distal femoral cutting block was pinned in place. Distal femoral cutting block was placed to take an additional 3 mm of bone off distal femur. The femur was then sized to a size 67.5. We did downsize this slightly. The AP cutting block was pinned parallel to the epicondylar axis which was 3 degrees of external rotation. The anterior cut, anterior chamfer, posterior cut, posterior chamfer cuts were made. The box cutting guide was placed in just slight lateral and the box cut was made. The knee was flexed. The remnants of the medial and lateral menisci were excised. The osteophytes taken on distal femur. The trial femoral component was placed. The tibia was subluxated anteriorly. The tibial tray was pinned Letty external rotation and the drill and stem punch used to create defect in proximal tibia for the tibial tray. The knee was then trialed and the 10 mm insert fit most appropriately. Attention drawn the patella. The patella was cleaned of all soft tissue. Patella thickness measured 18 mm in thickness and was cut down to 12. Was sized to a size 28 patella. The locals were drilled for the 28 patella. The lateral osteophyte was removed. Patella button was placed. Knee was taken through range of motion patella tracked nicely with no thumbs test. Attention drawn to place the permanent components. Nupathe all trial components were removed. Bone plug was placed in the distal femur limit blood loss. A double batch Palacos G cement was mixed. A Biomet Vanguard size 67.5 right posterior stabilized femoral component, a size 67 tibial tray, a 10 mm post stabilized polyethylene insert, and a 28 x 8 all poly patella then cemented in place. The knee was brought out into full extension till cement hardened. Final cement check was then performed. The pericapsular tissues were injected with total of 100 cc of Ortho mix. The patient did receive 1 g tranexamic acid. The tourniquet was then let down for tourniquet time 50 minutes. Hemostasis assured with electrocautery. Extensor Metros then closed with combination 1 PDS suture #1 Vicryl suture in a [id number] fashion. Extensor Meclomen checked found to be intact and subcutaneous tissue then closed with 2 Dexon suture in a buried interrupted fashion skin was closed skin cricket. Leg was then cleaned and dried and sterile dressed with Xeroform, 4 fours, sterile cast padding, Antwon bandage. Patient was then transferred to the recovery room in stable condition. Patient tolerated procedure well and there were no complications. Jose Luong, my physician talent acquisition assistant, was present for the entire procedure. His assistance was essential and required for appropriate patient positioning, prepping and draping, surgical exposure, performing the technical details of the operation, placement the implants, closure of the wound, and placement of the sterile bandage. I attest to the content of the Intraoperative Record and any orders documented therein. Any exceptions are noted below.
--- NOTE | 2023-11-22 14:50 | Anesthesiology Progress Note ---
Date of Service November 22, 2023 Anesthesia Post Procedure Vital Signs Vital Signs: Temp Pulse Pulse Resp BP Pulse Ox O2 Del Method 11/22/23 14:31 36.1 C L 96 H 17 91/54 L 95 Room Air 11/22/23 10:57 36.5 C 72 18 150/88 H 97 Room Air Notes Mental Status: alert / awake / arousable Patient Amnestic to Procedure: Yes Nausea / Vomiting: adequately controlled Pain: adequately controlled Airway Patency, RR, SpO2: stable & adequate BP & HR: stable & adequate Hydration State: stable & adequate Neuraxial Anesthesia: was administered and sensory block is resolving Anesthetic Complications: no major complications apparent
--- NOTE | 2023-11-22 15:06 | XRay Report ---
XR knee RT 1 or 2V routine HISTORY: 78 years-old Female Surgical Post Op COMPARISON: 08/26/2023 TECHNIQUE: 2 views of the right knee FINDINGS: Total joint arthroplasty with patellar resurfacing. Anterior midline skin cricket with expected posto perative soft tissue swelling and deep tissue air. IMPRESSION: Total joint arthroplasty with expected postoperative changes. ACT 112: Negative or not required by law. The above report was generated using voice recognition software. It may contain grammatical, syntax o r spelling errors. Electronically signed by: Pedrito oDver M.D. 11/22/2023 3:05 PM
[2023-11-22] MEDS ORDERED: METOCLOPRAMIDE HCL INJ 5 MG/ML 2 ML VIAL IV PRN (18:15)
[2023-11-22] MEDS ORDERED: ALUMINUM/MAGNESIUM SUSP 30 ML UDC PO PRN (18:15)
[2023-11-22] MEDS ORDERED: HYDROmorphone INJ 0.5 MG/0.5 ML SYR IV PRN (18:15)
[2023-11-22] MEDS ORDERED: ONDANSETRON INJ 2 MG/ML 2 ML VIAL IV PRN (18:15)
[2023-11-22] MEDS ORDERED: MAGNESIUM HYDROXIDE SUSP 30 ML UDC PO PRN (18:15)
[2023-11-22] MEDS ORDERED: bisacodyL 10 MG SUPP PR PRN (18:15)
[2023-11-22] MEDS ORDERED: NALOXONE HCL 0.4 MG/1 ML VIAL/CARP IV PRN (18:15)
[2023-11-22] MEDS: ORTHO JOINT ANESTHETIC ONE (19:29)
[2023-11-22] MEDS: ASCORBIC ACID 500 MG TAB PO SCH (19:45)
[2023-11-22] MEDS: SODIUM CHLORIDE 0.9% 1,000 ML IV SCH (19:50)
[2023-11-22] MEDS: TRANEXAMIC ACID / 0.7% NACL 1,000 MG/100 ML BAG IV SCH (20:30)
[2023-11-22] MEDS: DOCUSATE SODIUM 100 MG CAP PO SCH (20:30)
[2023-11-22] MEDS: SENNA 8.6 MG TAB PO SCH (20:30)
[2023-11-22] MEDS: ASPIRIN 81 MG ECTAB PO SCH (20:30)
[2023-11-22] MEDS ORDERED: SENNA 8.6 MG TAB PO SCH (21:00)
[2023-11-22] MEDS: KETOROLAC TROMETHAMINE 15 MG/ML VIAL IV SCH (22:44)
[2023-11-23] MEDS: oxyCODONE HCL IR 5 MG TAB (IMMEDIATE RELEASE) PO PRN (01:12)
[2023-11-23 07:25] LABS: BUN Creatinine Ratio 20.8 (10-20); Calcium 8.5 mg/dl (8.6-10.3); Creatinine Clr Calc Pharmacy 48.2 ml/min; Est GFR (African American) 65.7 ml/min; Est GFR (Non-African American) 56.6 ml/min; Hematocrit (blood only) 36.3 % (37.0-47.0); Hemoglobin 12.3 g/dl (12.0-16.0); Mean Corpuscular Hemoglobin 29.6 pg (25.0-34.0); Mean Corpuscular Hgb Conc 33.9 g/dL (32.0-36.0); Mean Corpuscular Volume 87.3 fL (80.0-100.0); Platelet Count 123 K/uL (130-400); Potassium 4.1 mmol/L (3.5-5.1); RDW Coefficient of Variation 12.9 % (11.5-14.5); RDW Standard Deviation 41.1 fL (36.4-46.3); Red Blood Count 4.16 M/uL (4.20-5.40); White Blood Count 13.63 K/ul (4.8-10.8)
--- NOTE | 2023-11-23 07:49 | Surgery Progress Note ---
Date of Service November 23, 2023 Assessment & Plan (1) Status post right knee replacement: Plan: 78-year-old female postop day 1 from right knee replacement doing pretty well. Pain is controlled. She is neurologically intact. Plan: 1. DVT prophylaxis including thigh-high teds, SCDs, aspirin twice a day. 2. PT/OT. Weight-bear as tolerated. Right total knee protocol. 3. Pain control doing okay with current pain regimen. 4. Disposition plan to discharge to home with some home health today if she does okay in therapy. Admission and Anticipated Discharge Date Admission Date: November 22, 2023 Subjective 78-year-old female postop day 1 from right knee replacement. She is doing pretty well. Pain is controlled. Data reasonably good night. No chest pain or shortness of breath. Not feeling dizzy or lightheaded. Physical Exam Physical Exam: Physical examination is a pleasant elderly female. She is sitting up in bed looks completely comfortable. Examination of the right leg reveals leg to be well aligned. Dressings clean dry and intact. No drainage. She can dorsiflex and plantarflex her foot appropriately. Respiratory: normal respiratory effort, lungs clear to auscultation Cardiovascular: RRR, no murmur, no edema Gastrointestinal (Abdomen): normal bowel sounds, soft, nontender, no hepatosplenomegaly Results & Data Vital Signs (Past 12 Hours) Vital Signs Temp Pulse Resp BP Pulse Ox O2 Del Method 11/23/23 07:05 36.6 C 71 16 111/70 97 Room Air 11/23/23 04:00 36.7 C 77 16 133/80 95 Room Air 11/22/23 22:42 36.7 C 86 16 136/82 95 Room Air 11/22/23 21:19 36.7 C 96 H 16 126/87 95 Room Air 11/22/23 20:17 36.7 C 104 H 16 139/85 95 Room Air Laboratory Results Hemoglobin is 12.3. Hematocrit 36.3. Electrolytes are stable. PG Care Time/CCT Total # of Minutes Spent Total Time Spent with Patient: Total time spent is greater than 50% in coordination of care (as documented) at patient's floor/unit and/or counseling patient: Coding Level of Care Code 65761 Post Operative Follow-Up Diagnoses Status post right knee replacement Z96.651
[2023-11-23] MEDS: dexAMETHasone 10 MG in SYRINGE 0 ML IV SCH (08:07)
[2023-11-23] MEDS: MULTIVITAMIN TAB PO SCH (08:07)
--- NOTE | 2023-11-27 15:58 | Discharge Summary ---
Date of Service November 27, 2023 Discharge Data Procedures Performed Operation Date: 11/22/23 12:30 Actual Procedures p Right Total Knee Arthroplasty(Right) - Arnav Toro MD Hospital Course (1) Status post right knee replacement: This is a 78 year old patient admitted on 11/22/23 and underwent total knee arthroplasty. She tolerated the procedure well and there were no complications. Transferred to the PACU post op and later to the orthopedic floor for further care. She was given ancef for antibiotic prophylaxis. She was also given ISIDRA stockings, SCDs, and aspirin for DVT prophylaxis. Hemoglobin, hematocrit, and vital signs were monitored during her hospital stay and remained stable. Did not require any blood transfusions. There were no complications during her hospital stay. By post op day #1 the patient was tolerating a regular diet, pain was reasonably controlled with oral pain medicine, and she was participating in physical therapy. On post op day #1 the patient was discharged home and set up with home health care. She was given printed discharge instructions including prescriptions for extra strength tylenol, aspirin, cefadroxil, ketorolac, zofran, senokot, and oxycodone. Continue physical therapy, weight bearing as tolerated. Continue ISIDRA stockings. Follow up approximately 2 weeks post op or sooner if there are problems or concerns. Coding Level of Care Code None Diagnoses Status post right knee replacement Z96.651
== END 2023-11-23 12:36 | disposition home health service (06) ==
LOC: 3E 10:46 → ASU 10:46